=== PATIENT | female | born 1945 | race Caucasian/White ===

== ENCOUNTER 2016-12-25 09:47 | Day surgery (SDC) | payer MEDICARE ==
[~2016-12-25] VITALS: Ht 175.3 cm; Wt 60.0 kg
[~2016-12-25 09:47] MED LIST: APIX5TAB PO; CLON-412 PO; DIGO125T6 PO; DILT300C60 PO; DULO30CA47 PO; ERGO500014 PO; LEVO75TA65 PO; LOSA25TA5 PO; NIT4 SL; OXYC-209 PO; PANT40TA3 PO; SOD CHLORIDE 0.9% 1,000 ML IV SCH; TIZA4TAB PO; TRAM50TA2 PO
[2016-12-25 11:11] VITALS: BP 182/82; PULSE 60; RESP 18; Ht 175.3 cm; Wt 60.0 kg
[2016-12-25 11:19] LABS: ALBUMIN 4.2 g/dl (3.3-4.9); INR 1.37; PROTIME 16.9 Sec (12.2-14.2); PT RATIO 1.3
[2016-12-25] MEDS ORDERED: ALDS PO (11:21)
[2016-12-25] MEDS ORDERED: FURO40TA4 PO (11:21)
[2016-12-25] MEDS ORDERED: AMIO400T5 PO (11:21)
[2016-12-25] MEDS ORDERED: METO50TA16 PO (11:21)
[2016-12-25 11:22] LABS: ALBUMIN/GLOBULIN RATIO 1.23; BILIRUBIN,INDIRECT 0.2 mg/dl (0-1.1); BILIRUBIN,TOTAL 0.2 mg/dl (0.2-1.3); TOTAL PROTEIN 7.6 g/dl (6.1-8.1)
[2016-12-25 11:23] LABS: CALCIUM 9.8 mg/dl (8.4-10.2); CREATININE 0.9 mg/dl (0.44-1.00); MAGNESIUM 1.9 mg/dl (1.7-2.5); POTASSIUM 4.3 mmol/L (3.5-5.1)
[2016-12-25 11:29] LABS: PARTIAL THROMBOPLASTIN TIME 32.2 Sec (25.0-35.0)
[2016-12-25 11:45] LABS: BASOPHILS % 0.4 % (0.0-2.0); EOSINOPHILS # 0.1 10^3/ul (0.0-0.5); EOSINOPHILS % 0.9 % (0.0-7.0); HEMATOCRIT 29.5 % (37.0-47.0); HEMOGLOBIN 9.3 g/dl (12.0-16.0); LYMPHOCYTES # 1.7 10^3/ul (0.8-2.9); MEAN CORPUSCULAR HEMOGLOBIN 24.1 pg (29.0-33.0); MEAN CORPUSCULAR HGB CONC 31.6 g/dl (32.0-37.0); MEAN CORPUSCULAR VOLUME 76.2 fl (82.0-101.0); MEAN PLATELET VOLUME 9.1 fl (7.4-10.4); MONOCYTE # 0.8 10^3/ul (0.3-0.9); MONOCYTES % 13.3 % (0.0-11.0); NEUTROPHIL # 3.7 10^3/ul (1.6-7.5); NEUTROPHILS % 58.4 % (39.0-77.0); PLATELET COUNT 291 10^3/UL (140-440); RED BLOOD COUNT 3.87 10^6/ul (4.20-5.40); RED CELL DISTRIBUTION WIDTH 16.3 % (11.5-14.5); UNCORRECTED WBC 6.3 10^3/ul (4.8-10.8); WHITE BLOOD COUNT 6.3 10^3/ul (4.8-10.8)
[2016-12-25 11:55] LABS: CONDITION 1; LH ANALYZER COMMENTS 1
[2016-12-25] MEDS ORDERED: LIDOCAINE 2% (SDV) 5 ML INJ ONE (12:08)
[2016-12-25] MEDS ORDERED: PROPOFOL 40 ML ONE (12:08)
[2016-12-25 15:16] VITALS: BP 183/82; PULSE 66; RESP 16
--- NOTE | 2016-12-25 15:35 | SP ---
DATE OF PROCEDURE: 12/25/2016 NAME OF PROCEDURE: Defibrillator threshold testing. SURGEON: Sherley Redman MD INDICATIONS: A 71-year-old female with history of cardiac arrest, V-tach arrest, has an ICD which w as never tested. The patient also started on amiodarone. It was felt the patient would benefit fro m DFT testing because of her past history. DESCRIPTION OF PROCEDURE: Written informed consent was discussed with the patient. This included i nfection, risks include but not limited to anesthesia related complication, stroke, NV, , etc., discussed with the patient. The patient was brought into the recovery room underwent anesthesia by anesthesiologist. Pads already been placed in place. External defibrillator testing was checked first at 1 joule to m jasmeet sure it is working. The patient was induced into ventricular fibrillation the device. Th e device recognized the rhythm and successfully cardioverted the patient back to sinus rhythm at 17. 5 joules. IMMEDIATE COMPLICATIONS: None. CONCLUSION: Successful DFT testing. The device setting for the lower threshold. Dictated By: SHERLEY NORMAN/KAT Conf#: [id number] DID#: [id number]
--- NOTE | 2016-12-25 18:45 | RADRPT ---
Vent Rate: 60 bpm RR Interval: 0 msec [place] Interval: 192 msec QRS Duration: 176 msec QT Interval: 472 msec QTC Interval: 472 msec P-R-T [place]: 0 - 141 - -26 degrees Atrial ventricular pacemaker Electronically Signed By: Juan Alberto Aleman [id number]
--- NOTE | 2016-12-25 18:45 | RADRPT ---
Vent Rate: 120 bpm RR Interval: 0 msec [place] Interval: 0 msec QRS Duration: 32 msec QT Interval: 288 msec QTC Interval: 407 msec P-R-T [place]: 0 - -20 - -17 degrees Electronic atrial ventricular pacemaker Electronically Signed By: Juan Alberto Aleman [id number]
== END 2016-12-25 15:23 | disposition home or self-care (01) ==
LOC: SDS 09:47
PROVIDERS: ATTEND Internal Medicine Interventional Cardiology
DX: I48.91 Unspecified atrial fibrillation (principal)
CPT/HCPCS: 80053; 83735; 85025; 85610; 85730; 93005; 93642